=== PATIENT | male | born 1960 | race Hispanic/Latino ===

== ENCOUNTER 2018-05-09 19:19 | Inpatient (IN) | payer OTHER ==
[2018-05-09] MEDS ORDERED: Acetaminophen 500 MG TAB ONE (20:10)
[2018-05-09] MEDS ORDERED: cefTRIAXone\\ROCEPHIN 1 GM VIAL ONE (20:10)
[2018-05-09] MEDS ORDERED: Ketorolac Tromethamine 30 MG/ML VIAL ONE (20:10)
[2018-05-09 20:26] LABS: Bilirubin Negative (Negative); Blood, Urine Negative (Negative); Clarity CLOUDY (Clear); Glucose, Urine (Dipstick) >=1000 mg/dL (Negative); Leukocyte Small (Negative); Nitrite Positive (Negative); Protein, Urine (Dipstick) Trace mg/dL (Neg-Trace); Specific Gravity, Urine 1.043 (1.002-1.036); pH, Urine 5.5 (5.0-9.0)
[2018-05-09 20:27] LABS: #Eosinphils 0.1 thou/uL (0.0-0.7); #Lymphocytes 0.5 thou/uL (1.20-3.40); #Monocytes 0.3 thou/uL (0.11-0.59); #Neutrophils 8.9 thou/uL (1.40-6.50); %Basophils 0.1 % (0.0-1.0); %Eosinophils 0.6 % (0.0-10.0); %Lymphocytes 4.8 % (21.0-51.0); %Monocytes 3.1 % (0.0-10.0); %Neutrophils 91.4 % (42.0-75.0); Hemoglobin 14.8 g/dL (14.0-18.0); Mean Corpuscular HGB CONC 34.3 g/dL (32.0-36.0); Mean Corpuscular Hemoglobin 33.6 pg (27.0-31.0); Mean Corpuscular Volume 97.8 fL (78.0-98.0); Mean Platelet Volume 7.3 fL (7.4-10.4); Platelet Count 238 thou/uL (130-400); RBC Distribution Width 11.9 % (11.5-14.5); Red Blood Cell (RBC) Count 4.39 mill/uL (4.70-6.10); White Blood Cell (WBC) Count 9.7 thou/uL (4.8-10.8)
[2018-05-09 20:28] LABS: Bacteria/HPF 4+ HPF (None Seen); Hyaline Casts/LPF 0-3 HYALINE CAST LPF (0-3 Hyaline); Pathc Cast-AUWi Flag 0.14 (0-2.49); RBC/HPF 0-3 HPF (0-3); Squamous Epithelial None Seen HPF (0-3)
[2018-05-09 20:53] LABS: CKMB 0.8 ng/mL (0-6.6); Troponin I Less than 0.010 ng/mL (< 0.028)
--- NOTE | 2018-05-09 21:01 | RAD ---
AP CHEST X-RAY 05/09/18 HISTORY: Cough and headache. COMPARISON: None available. FINDINGS: The cardiac silhouette and pulmonary vasculature are within normal limits. The lungs are clear. [place] structures are intact. IMPRESSION: No acute cardiopulmonary process. POS: [facility]
[2018-05-09 21:09] LABS: ALT (SGPT) 23 U/L (8-55); AST (SGOT) 14 U/L (5-34); Albumin 3.5 g/dL (3.5-5.0); Alkaline Phosphatase 78 U/L (40-150); Anion Gap 12 mmol/L (10-20); BUN (Urea Nitrogen) 14 mg/dL (8.4-25.7); Calc. Creatinine Clearance 0 mL/min (70-130); Calcium 8.4 mg/dL (7.8-10.44); Carbon Dioxide 21 mmol/L (22-29); Chloride 103 mmol/L (98-107); Estimated GFR-MDRD 77; Globulin 2.8 g/dL (2.4-3.5); Glucose 437 mg/dL (70-105); Lipase 30 U/L (8-78); Potassium 3.7 mmol/L (3.5-5.1); Protein, Total 6.3 g/dL (6.0-8.3); Sodium 132 mmol/L (136-145)
--- NOTE | 2018-05-09 21:49 | CT ---
NONCONTRAST CT ABDOMEN AND PELVIS: 05/09/18 HISTORY: Back pain, blood in urine. COMPARISON: None available. FINDINGS: No renal or ureteral calculi are seen bilaterally, and there is no evidence of hydronephrosis. Urinar y bladder is partially distended and has a normal CT appearance. Lack of intravenous contrast does limit sensitivity for evaluation of the parenchymal organs; however , the liver, spleen, pancreas, bilateral adrenal glands, and kidneys demonstrate a grossly normal non enhanced CT appearance. The appendix is visualized and normal in caliber. Loops of small bowel are normal in caliber. Minimal vascular calcifications are seen in the abdominal aorta. Incidental note is made of a circuma ortic left renal vein. No enlarged lymph nodes are seen by CT size criteria and there is no free flui d in the abdomen or pelvis. Degenerative changes are seen in the lumbar spine. IMPRESSION: 1. No renal or ureteral calculi are seen bilaterally. There is no evidence of hydronephrosis. 2. No CT evidence of appendicitis. POS: [facility]
[2018-05-09] MEDS ORDERED: Dextrose 5% in Water 1,000 ML IV PRN (22:50)
[2018-05-09] MEDS ORDERED: Zolpidem Tartrate 5 MG TAB PO PRN (22:50)
[2018-05-09] MEDS ORDERED: Dextrose 50% Abboject 50 ML SYRINGE SLOW IVP PRN (22:50)
[2018-05-09] MEDS ORDERED: Calcium Carbonate 500 MG ChewTAB PO PRN (22:50)
[2018-05-09] MEDS ORDERED: HumaLOG 300 UNITS/3 ML VIAL SC PRN (22:50)
[2018-05-09] MEDS ORDERED: HYDROcodone/Acetaminophen 5/325 mg Tablet PO PRN (22:50)
[2018-05-09] MEDS ORDERED: Ondansetron ODT 4 MG TAB PO PRN (22:50)
[2018-05-09] MEDS ORDERED: Loperamide HCl 2 MG CAP PO PRN (22:50)
[2018-05-09] MEDS ORDERED: Bisacodyl 5 MG TAB PO PRN (22:50)
[2018-05-09] MEDS ORDERED: Senokot S 8.6-50 MG TAB PO PRN (22:50)
[2018-05-09 23:09] VITALS: BMI 25.4
[2018-05-09] MEDS ORDERED: Enoxaparin Sodium 40 MG/0.4 ML SYRINGE SC SCH (23:15)
[2018-05-09] MEDS: Sodium Chloride 0.9% 1,000 ML IV SCH (23:57)
[2018-05-10 00:59] LABS: Lactic Acid 2.4 mmol/L (0.5-2.2)
--- NOTE | 2018-05-10 01:49 | HP ---
DATE OF SERVICE: 05/09/2018 PRIMARY CARE PHYSICIAN: [facility]. REASON FOR ADMISSION: Sepsis, urinary tract infection, uncontrolled diabetes. HISTORY OF PRESENT ILLNESS: A 57-year-old male who speaks Polish, so history obtained with help of his family member who speaks British present at bedside. Patient is extremely noncompliant with medication treatment. He was not taking any diabetes medicine. He was not following his PCP. For the last one week, he is sick. He was having UTI symptoms with increased frequency, foul smelling urine, dysuria, and some perineal pain. He denies any back pain. He denies any gross hematuria. Patient was having on and off fever at home. He was feeling weak, tired. He was having headache, body ache, but he was not having any flu-like illness. He did not have any upper or lower respiratory symptoms. [facility] was called because patient was having headache as well as he was extremely weak. Paramedics checked his blood sugar, it was very high and he was also hypertensive. In the emergency room, sepsis activation was initiated and after giving IV fluid, patient was feeling better. In the emergency room, he was febrile and routine blood tests showed lactic acidosis, uncontrolled blood sugar and his urinalysis was consistent with UTI. He was given Rocephin IV in the emergency room and subsequently he was admitted to medical floor. ALLERGIES: PENICILLIN. CURRENT HOME MEDICATIONS: The patient is not taking any prescribed or non- prescribed medication at this point. He does not have any medication with him. PAST MEDICAL HISTORY: Diabetes type 2, medication noncompliance. PAST SURGICAL HISTORY: Reviewed and negative. PAST PSYCHIATRIC HISTORY: History of anxiety and depression, but not on any treatment. SOCIAL HISTORY: Patient drinks alcohol socially. He denies any smoking. He denies any other illicit drug abuse. FAMILY HISTORY: Diabetes runs among several family members, but no family history of coronary artery disease, stroke, or cancer. EMERGENCY ROOM COURSE: Patient has received Rocephin 1 gram, Tylenol 1 gram, Toradol 30 mg, and IV fluid. REVIEW OF SYSTEMS: The following complete review of systems was negative, unless otherwise mentioned in the HPI or below: Constitutional: Weight loss or gain, ability to conduct usual activities. Skin: Rash, itching. Eyes: Double vision, pain. ENT/Mouth: Nose bleeding, neck stiffness, pain, tenderness. Cardiovascular: Palpitations, dyspnea on exertion, orthopnea. Respiratory: Shortness of breath, wheezing, cough, hemoptysis, fever or night sweats. Gastrointestinal: Poor appetite, abdominal pain, heartburn, nausea, vomiting, constipation, or diarrhea. Genitourinary: Urgency, frequency, dysuria, nocturia. Musculoskeletal: Pain, swelling. Neurologic/Psychiatric: Anxiety, depression. Allergy/Immunologic: Skin rash, bleeding tendency. Please see my HPI for pertinent positive and negative. All other review of systems reviewed and negative except as mentioned in the HPI. PHYSICAL EXAMINATION: VITAL SIGNS: On arrival, blood pressure 130/75, pulse 111, temperature 100.7, saturation 95% on room air, respiratory rate 18, weight 65.7 kilograms. GENERAL: Patient is currently alert, awake, febrile, tachycardic, in no obvious acute distress. HEAD: Normocephalic, atraumatic. EYES: Pupils are round, reactive to light. Extraocular muscle intact. ENT: Oropharynx within normal limits. Moist mucous membranes. No oral lesion , no pharyngeal erythema, no exudate. NECK: Supple. No JVD, no thyromegaly, no carotid bruit. LUNGS: Clear to auscultation without any rhonchi or rales. CARDIAC: S1, S2 regular, tachycardia. No murmur, no gallop, no rub. ABDOMEN: Soft, bowel sounds present. Suprapubic discomfort noted. BACK: Unremarkable. No CVA tenderness. EXTREMITIES: Upper extremity: Passive movement of all joints are normal. Lower extremities: No edema. Good distal pulsation. SKIN: No skin rash. HEMATOLOGICAL: No lymphadenopathy. PSYCHIATRIC: Normal affect. SIGNIFICANT LABORATORY AND DIAGNOSTIC DATA: CT of the abdomen and pelvis showing no renal or ureteral calculi, no hydronephrosis, no appendicitis. Chest x-ray based on my review, no acute cardiopulmonary process. CBC: WBC 9.7 , hemoglobin 14.8, platelet 238,000 with left shift. BMP: Sodium 132, potassium 3.7, chloride 103, carbon dioxide 21, BUN 14, creatinine 1.0, glucose 437, calcium 8.4. LFT: AST 14, ALT 23, alkaline phosphatase is 78, albumin 3.5 , lipase 30. CK-MB 0.8, troponin I less than 0.010. Lactic acid 3.2. Urinalysis consistent with urinary tract infection. ASSESSMENT AND PLAN: 1. Sepsis due to urinary tract infection. Patient has fever of 100.7, tachycardia. He has left shift and source of infection is urinary tract. Patient will be given appropriate broad spectrum antibiotic therapy. He will be given IV fluid and will follow up on culture result and will change antibiotic therapy based on culture result. 2. Urinary tract infection. Differential diagnosis is possible early pyelonephritis/prostatitis. Clinically, he does not have any gross cerebrovascular accident tenderness. He does not have any now perineal discomfort, so most likely cystitis. Patient will be treated with Rocephin 1 gram q.24 hours, Levaquin 750 mg IV daily. Follow up on urine culture result and change antibiotic therapy accordingly. 3. Hyponatremia likely due to pseudohyponatremia from uncontrolled blood sugar. We will repeat BMP tomorrow. 4. Diabetes type 2, uncontrolled due to noncompliance with the treatment. Patient will be given diabetic diet. We will cover insulin as per aggressive sliding scale insulin. We will start metformin 1000 mg twice daily and glyburide 5 mg p.o. daily. We will check hemoglobin A1c tomorrow to see overall control. 5. Lactic acidosis, likely due to sepsis. Patient will be given IV fluid and will repeat lactic acid tomorrow. 6. Medication compliance education given. 7. Deep venous thrombosis prophylaxis. Lovenox 40 mg subcu daily. 8. Gastrointestinal prophylaxis. Pepcid 20 mg p.o. b.i.d. 9. Code status: The patient is FULL CODE. Patient's daughter is surrogate decision maker. 10. Disposition plan based on clinical course. We are expecting patient's stay in hospital more than 2 midnights. Plan of care discussed with the patient and family member at bedside in detail. MTDD
[2018-05-10] MEDS: Sodium Chloride 0.9% 1,000 ML IV SCH ×3 (04:58→23:54)
[2018-05-10] MEDS: Acetaminophen 325 MG TAB PO PRN ×3 (05:09→20:29)
[2018-05-10] MEDS: HumaLOG 300 UNITS/3 ML VIAL SC PRN ×2 (05:15→12:02)
[2018-05-10 05:25] LABS: #Lymphocytes 0.6 thou/uL (1.20-3.40); #Monocytes 0.8 thou/uL (0.11-0.59); #Neutrophils 10.2 thou/uL (1.40-6.50); %Basophils 0.1 % (0.0-1.0); %Eosinophils 0.3 % (0.0-10.0); %Lymphocytes 5.1 % (21.0-51.0); %Monocytes 6.7 % (0.0-10.0); %Neutrophils 87.9 % (42.0-75.0); Hemoglobin 13.2 g/dL (14.0-18.0); Mean Corpuscular HGB CONC 33.7 g/dL (32.0-36.0); Mean Corpuscular Hemoglobin 32.9 pg (27.0-31.0); Mean Corpuscular Volume 97.5 fL (78.0-98.0); Mean Platelet Volume 7.1 fL (7.4-10.4); Platelet Count 227 thou/uL (130-400); RBC Distribution Width 11.9 % (11.5-14.5); Red Blood Cell (RBC) Count 4.03 mill/uL (4.70-6.10); White Blood Cell (WBC) Count 11.7 thou/uL (4.8-10.8)
[2018-05-10 05:36] LABS: Hemoglobin A1c 11.9 % (4.0-6.0)
[2018-05-10 05:52] LABS: Anion Gap 9 mmol/L (10-20); BUN (Urea Nitrogen) 12 mg/dL (8.4-25.7); Calc. Creatinine Clearance 97 mL/min (70-130); Calcium 7.8 mg/dL (7.8-10.44); Carbon Dioxide 21 mmol/L (22-29); Chloride 107 mmol/L (98-107); Estimated GFR-MDRD Greater than 90; Glucose 361 mg/dL (70-105); Sodium 133 mmol/L (136-145)
[2018-05-10] MEDS: Ondansetron PF 4 MG/2 ML Vial IVP PRN (09:40)
[2018-05-10] MEDS: glyBURIDE 5 MG TAB PO SCH ×2 (09:44→11:59)
[2018-05-10] MEDS: metFORMIN 500 MG TAB PO SCH ×2 (09:45→17:44)
[2018-05-10] MEDS: Saccharomyces boulardii 250 MG CAP PO SCH ×2 (09:51→11:59)
[2018-05-10] MEDS: Famotidine 20 MG TAB PO SCH ×3 (09:51→20:29)
--- NOTE | 2018-05-10 15:54 | PDOC.PN ---
- Subjective Encounter Start Date: 05/10/18 Encounter Start Time: 15:52 Mr. Das was seen in follow-up of UTI with sepsis. He says he is feeling better. He had some nausea this morning, but it has improved. - Objective Resuscitation Status: Resuscitation Status FULL:Full Resuscitation MAR Reviewed: Yes Vital Signs & Weight: Vital Signs (12 hours) Temp Pulse Resp BP Pulse Ox 05/10/18 09:40 101.6 F H 05/10/18 09:00 99.9 F H 05/10/18 08:00 94 L 05/10/18 07:17 100.3 F H 94 16 106/61 94 L 05/10/18 05:17 98.7 F 92 20 131/78 95 Weight Weight 143 lb 9 oz I&O: 05/09/18 05/10/18 05/11/18 06:59 06:59 06:59 Intake Total 1750 Balance 1750 Result Diagrams: 05/10/18 04:30 05/10/18 04:30 Additional Labs: Accuchecks 05/10/18 05/10/18 05/09/18 11:49 05:06 23:17 POC Glucose 288 H 284 H 324 H Phys Exam - Physical Examination HEENT: PERRLA Respiratory: no wheezing, no rales, no rhonchi, clear to auscultation bilateral Cardiovascular: RRR, no significant murmur, no rub no gallop Gastrointestinal: soft, non-tender, no distention, positive bowel sounds Musculoskeletal: no edema Dx/Plan (1) UTI (urinary tract infection) Status: Acute (2) Sepsis Code(s): A41.9 - SEPSIS, UNSPECIFIED ORGANISM Status: Acute (3) Diabetes type 2, uncontrolled Code(s): E11.65 - TYPE 2 DIABETES MELLITUS WITH HYPERGLYCEMIA Status: Acute - Plan * UTI- continue Rocephin and Levaquin. Awaiting the results of the urine culture * DM- Patient has been started on glyburide. Will monitor, and cover with SSI * Symptom management
[2018-05-10] MEDS ORDERED: cefTRIAXone\\ROCEPHIN 1 GM in Sodium Chloride 0.9% 100 ML IVPB SCH (20:00)
[2018-05-11] MEDS: Ondansetron PF 4 MG/2 ML Vial IVP PRN (04:32)
[2018-05-11 05:14] LABS: #Eosinphils 0.1 thou/uL (0.0-0.7); #Lymphocytes 1.4 thou/uL (1.20-3.40); #Monocytes 1.3 thou/uL (0.11-0.59); #Neutrophils 8.2 thou/uL (1.40-6.50); %Basophils 0.2 % (0.0-1.0); %Eosinophils 0.5 % (0.0-10.0); %Lymphocytes 12.8 % (21.0-51.0); %Neutrophils 74.5 % (42.0-75.0); Hemoglobin 12.8 g/dL (14.0-18.0); Mean Corpuscular HGB CONC 33.2 g/dL (32.0-36.0); Mean Corpuscular Hemoglobin 32.5 pg (27.0-31.0); Mean Corpuscular Volume 97.9 fL (78.0-98.0); Mean Platelet Volume 6.9 fL (7.4-10.4); Platelet Count 224 thou/uL (130-400); Red Blood Cell (RBC) Count 3.94 mill/uL (4.70-6.10)
[2018-05-11 05:26] LABS: Anion Gap 10 mmol/L (10-20); BUN (Urea Nitrogen) 10 mg/dL (8.4-25.7); Calc. Creatinine Clearance 106 mL/min (70-130); Calcium 7.9 mg/dL (7.8-10.44); Carbon Dioxide 23 mmol/L (22-29); Chloride 107 mmol/L (98-107); Estimated GFR-MDRD Greater than 90; Glucose 183 mg/dL (70-105); Potassium 3.8 mmol/L (3.5-5.1); Sodium 136 mmol/L (136-145)
[2018-05-11 08:10] VITALS: BP 116/73; TEMP 98.3
[2018-05-11] MEDS: Sodium Chloride 0.9% 1,000 ML IV SCH (08:31)
[2018-05-11] MEDS: metFORMIN 500 MG TAB PO SCH (08:32)
[2018-05-11] MEDS: glyBURIDE 5 MG TAB PO SCH (08:32)
[2018-05-11] MEDS: Famotidine 20 MG TAB PO SCH (08:32)
[2018-05-11] MEDS: Saccharomyces boulardii 250 MG CAP PO SCH (08:33)
--- NOTE | 2018-05-12 01:19 | DIS ---
DATE OF ADMISSION: 05/09/2018 DATE OF DISCHARGE: 05/11/2018 PRIMARY CARE PHYSICIAN: Charissa Mendez. DISCHARGE DISPOSITION: Home. PRIMARY DISCHARGE DIAGNOSES: 1. Urinary tract infection with sepsis and this is secondary to Klebsiella. 2. Diabetes mellitus, uncontrolled. DISCHARGE MEDICATIONS: Include ciprofloxacin 500 mg 1 p.o. twice a day for 10 days as well as metfor min 500 mg twice a day, glipizide 5 mg p.o. daily and Florastor 250 mg daily. CODE STATUS: FULL CODE. ALLERGIES: PENICILLINS. PROCEDURE DONE DURING ADMISSION: The patient had a CT scan of the abdomen and pelvis and it was esse ntially negative. HOSPITAL COURSE: Mr. Das is a pleasant 57-year-old gentleman that presented to the emergency room feeling weak and having fever. He was found to have a urinary tract infection. He met criteria for sepsis due to fever and leukocytosis. He also is diabetic and has not been taking his medications o n a regular basis. He states that he was getting side effects due to the medication. By the time patient was discharged; however, he was tolerating the diabetic medication. Also, tolerating the a ntibiotics. His temperature is trending down and nausea had improved and he is subsequently being di scharged home to have close followup in the outpatient setting and did recommend that he have his pro state checked due to the development of this urinary tract infection.
--- NOTE | 2018-05-13 13:27 | EKG ---
Test Reason : Blood Pressure : / mmHG Vent. Rate : 101 BPM Atrial Rate : 101 BPM P-R Int : 140 ms QRS Dur : 092 ms QT Int : 338 ms P-R-T Axes : 032 038 046 degrees QTc Int : 438 ms Sinus tachycardia Otherwise normal ECG Confirmed by ATTILA EMMANUEL ([id number]), make up editor URI JARQUIN ([id number]) on 05/13/2018 1:27:32 PM Referred By: Confirmed By:ATTILA EMMANUEL
== END 2018-05-11 17:15 | disposition home or self-care (01) | DRG 872 ==
LOC: ERS 19:19 → T4-A 23:00
PROVIDERS: ADMIT Internal Medicine; ATTEND Internal Medicine
DX: A41.89 Other specified sepsis (principal); N39.0 Urinary tract infection, site not specified; E87.1 Hypo-osmolality and hyponatremia; Z91.14 Patient's other noncompliance with medication regimen; I10 Essential (primary) hypertension; Z88.0 Allergy status to penicillin; E11.65 Type 2 diabetes mellitus with hyperglycemia; F41.9 Anxiety disorder, unspecified; F32.9 Major depressive disorder, single episode, unspecified; B96.1 Klebsiella pneumoniae [K. pneumoniae] as the cause of diseases classified elsewhere
CPT/HCPCS: 36415; 36416; 71045; 74176; 80048; 80053; 81003; 81015; 82553; 83036; 83605; 83690; 84484; 85025; 87040; 87077; 87086; 87149; 87186; 87804; 93005; 96361; 96365; 96375; J0696; J1650; J1885; J1956; J2405; J7050